=== PATIENT | female | born 1955 | race Caucasian/White ===

== ENCOUNTER 2021-02-16 08:00 | Outpatient (CLI) | payer MEDICARE, BC ==
[2021-02-16 15:12] LABS: BILIRUBIN,URINE NEGATIVE (NEGATIVE); GLUCOSE, URINE (UA) NEGATIVE (NEGATIVE); KETONES,URINE (UA) NEGATIVE (NEGATIVE); LEUKOCYTE ESTERASE, URINE NEGATIVE (NEGATIVE); NITRITE,URINE NEGATIVE (NEGATIVE); OCCULT BLOOD,URINE MODERATE (NEGATIVE); PROTEIN,URINE NEGATIVE (NEGATIVE); UROBILINOGEN,URINE 0.2 (NORMAL) E.U./dL (NORMAL)
[2021-02-16 16:45] LABS: BACTERIA,URINE None Seen /HPF (None Seen); CLARITY,URINE CLEAR (CLEAR); SQUAMOUS EPITHELIAL CELL,UR FEW Squamous (<= Few); WBC,URINE 0-3 /HPF (0-5)
== END 2021-02-16 23:59 | disposition home or self-care (01) ==
LOC: LAB.S 08:00
PROVIDERS: ATTEND Emergency Medicine
DX: R30.0 Dysuria (principal)
CPT/HCPCS: 81001; 87086

== ENCOUNTER 2021-09-14 12:49 | Outpatient (CLI) | payer MEDICARE, BC | END 2021-09-14 12:50 | disposition critical access hospital (66) | LOC: EMS 12:49 | DX: M79.621 Pain in right upper arm (principal); W01.0XXA Fall on same level from slipping, tripping and stumbling without subsequent striking against object, initial encounter; Y92.009 Unspecified place in unspecified non-institutional (private) residence as the place of occurrence of the external cause | CPT/HCPCS: A0425; A0427 ==

== ENCOUNTER 2021-09-14 13:30 | Emergency (ER) | payer MEDICARE, BC ==
[2021-09-14] MEDS ORDERED: HYDROmorphone 1 MG/ML CARPUJECT IVP STA (13:36)
--- NOTE | 2021-09-14 13:40 | ED Physician Documentation ---
History of Present Illness - Stated complaint Stated Complaint: GLF/R UPPER ARM INJ - Chief complaint Chief Complaint: Trauma Ext - History obtained from History obtained from: Patient, EMS - History of Present Illness Timing: Today Pain level max: 10 Pain level now: 10 - Additonal information Additional information: Patient is a 66-year-old female who presents to the emergency department after a ground-level fall complaining of right upper extremity pain. She states that she did not strike her head. No loss of consciousness. No neck or back pain. Worse with movement, better with rest. EMS gave 150 mcg of fentanyl en route. She states that most of the pain is in the upper humerus. She states that she did have numbness in her hand and arm, but this is improving now. She is right- handed. No other injuries Review of Systems Ten Systems: 10 systems reviewed and negative Constitutional: denies: Fever, Chills Nose: denies: Rhinorrhea / runny nose, Congestion Respiratory: denies: Cough GI: denies: Nausea, Vomiting, Diarrhea Skin: denies: Rash Musculoskeletal: denies: Neck pain, Back pain Neurologic: denies: Focal weakness, Numbness, Headache, Head injury, LOC PD PAST MEDICAL HISTORY - Past Medical History Past Medical History: Yes Psych: Depression, Anxiety Other Past Medical History: TBI - Present Medications Home Medications: Ambulatory Orders Medication Instructions Recorded Confirmed Oxycodone HCl/Acetaminophen 1 - 2 each PO Q6H PRN #14 tablet 09/14/21 [Percocet 5-325 mg Tablet] - Allergies Allergies/Adverse Reactions: Allergies Allergy/AdvReac Type Severity Reaction Status Date / Time Sulfa (Sulfonamide Allergy Anaphylaxis Verified 09/14/21 13:44 Antibiotics) - Living Situation Living Situation: reports: With family Living Arrangement: reports: At home - Social History Does the pt smoke?: No Does the pt have substance abuse?: No PD ED PE NORMAL - Vitals Vital signs reviewed: Yes - General General: Alert and oriented X 3, No acute distress, Well developed/nourished - HEENT HEENT: Atraumatic, PERRL, EOMI, Ears normal, Moist mucous membranes - Neck Neck: Supple, no meningeal sign, No bony TTP, C-Spine cleared by NEXUS criteria - Cardiac Cardiac: RRR - Respiratory Respiratory: No respiratory distress, Clear bilaterally - Abdomen Abdomen: Soft, Non tender, Non distended - Back Back: No spinal TTP - Derm Derm: Warm and dry - Extremities Extremities: Other (Deformity to the right shoulder. Neurovascularly intact. Axillary nerve intact. Nontender over the clavicle, distal humerus, forearm or wrist. 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, No motor deficit, No sensory d eficit, Normal speech Eye Opening: Spontaneous Motor: Obeys Commands Verbal: Oriented GCS Score: 15 - Psych Psych: Normal mood, Normal affect Results - Vitals Vitals: Vital Signs - 24 hr 09/14/21 09/14/21 09/14/21 13:35 13:59 14:18 Temperature 36.2 C L Heart Rate 62 63 64 Respiratory 18 18 18 Rate Blood Pressure 149/96 H 149/96 H 162/95 H O2 Saturation 99 95 100 09/14/21 09/14/21 09/14/21 14:21 14:23 14:30 Temperature Heart Rate 59 L 58 L 54 L Respiratory 10 L 10 L 16 Rate Blood Pressure 140/93 H 138/88 H 148/92 H O2 Saturation 90 L 09/14/21 09/14/21 09/14/21 14:32 14:36 14:43 Temperature Heart Rate 60 60 66 Respiratory 16 16 18 Rate Blood Pressure 140/64 H 148/92 H 148/92 H O2 Saturation 99 100 100 09/14/21 09/14/21 09/14/21 14:45 15:34 15:47 Temperature Heart Rate 67 53 L 76 Respiratory 16 18 18 Rate Blood Pressure 146/89 H 150/76 H 136/89 H O2 Saturation 100 100 100 09/14/21 15:54 Temperature Heart Rate 75 Respiratory 20 Rate Blood Pressure O2 Saturation Oxygen O2 Source Room air Oxygen Flow Rate 100 - Rads (name of study) Right shoulder x-ray Radiology: Final report received, EMP read contemporaneously, See rad report (Anterior right shoulder dislocation with Hill-Sachs fracture) Right shoulder x-ray postreduction Radiology: Final report received, EMP read contemporaneously, See rad report (Status post reduction of right shoulder anterior dislocation. 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 Resolved with oxygen) Sedation recovery: Recovered uneventfully, Slow recovery Time in sedation (Minutes): 35 PD MEDICAL DECISION MAKING - ED course Complexity details: reviewed results, re-evaluated patient, considered differential, d/w patient ED course: 66-year-old female status post ground-level fall at home. She initially said she did not strike her head, called and said that she has a traumatic brain injury and she did in fact strike her head when she fell. Therefore a head CT was performed. This is negative. She does have a right shoulder dislocation with Hill-Sachs fracture. This was reduced. Tolerated well. On the initial sedation, the shoulder did not reduce fully, therefore another 50 mg of propofol was given successfully reduced. This was all on the same sedation encounter. We will prescribe pain medication for home and have her follow-up with orthopedics. Patient counseled regarding signs and symptoms for which I believe and urgent re-evaluation would be necessary. Patient with good understanding of and agreement to plan and is comfortable going home at this time This document was made in part using voice recognition software. While efforts are made to proofread this document, sound alike and grammatical errors may occur. IMPRESSION: No significant intracranial abnormality is seen. No intracranial hemorrhage is seen. 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 Remote appearing outgrowth can be seen along the posterior inferior aspect of the left mastoids. 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 Departure - Departure Disposition: 01 Home, Self Care Clinical Impression: Shoulder dislocation Qualifiers: Encounter type: initial encounter Laterality: right Qualified Code(s): S43.004A - Unspecified dislocation of right shoulder joint, initial encounter Head injury Qualifiers: Encounter type: initial encounter Qualified Code(s): S09.90XA - Unspecified injury of head, initial encounter Hill-Sachs fracture Qualifiers: Encounter type: initial encounter Fracture type: closed Laterality: right Qualified Code(s): S42.291A - Other displaced fracture of upper end of right humerus, initial encounter for closed fracture Condition: Good Instructions: ED Dislocation Shoulder Redu Follow-Up: GARRETT RAPP ARNP [Primary Care Provider] - [facility] [Provider Group] - Within 1 week Prescriptions: Oxycodone HCl/Acetaminophen [Percocet 5-325 mg Tablet] 1 - 2 each PO Q6H PRN #14 tablet PRN Reason: pain Comments: Follow up with orthopedics for further care. Return if you worsen. Stay in the sling until released by orthopedics. Please call orthopedics for an appointment. Your prescriptions were sent to [facility] in [place]. I am prescribing a short course of narcotic pain medication for you. These are potentially dangerous and addictive medications that should be used carefully. These medications may constipate you. Take an [id number]-[id number] stool softener (docusate) twice daily with plenty of water while taking these medications. If you go 24 hours without a bowel movement, take [id number] miralax, per package instructions. Do not drink or drive while taking these medications. If you received narcotic or sedating medications while in the emergency department, do not drive for 24 hours. Store this medication in a safe, secure place and out of reach of children. It is a violation of federal law to give or sell this medication to another person or to use in a manner other than prescribed. The ED will not refill narcotic prescriptions, including prescriptions lost or stolen. To dispose of unwanted medications: 1. [facility] [address] in [place] has a medication drop box. They accept prescription medications (in pill form) Saturday through Saturday 9:00 a.m. to 5:00 p.m. 2. [facility] accepts prescription medications (in pill form only) for disposal year round. Call for more information. 3. Contact the [facility] for the next [facility] sponsored prescription drug collection event. , [phone], or [phone]; Discharge Date/Time: 09/14/21 16:00
[2021-09-14] MEDS ORDERED: SODIUM CHLORIDE 0.9% 1,000 ML IV STA (14:11)
[2021-09-14] MEDS ORDERED: PROPOFOL 200 MG/20 ML VIAL IVP STA (14:11)
--- NOTE | 2021-09-14 14:16 | XRAY Report ---
PROCEDURE: Humerus RT INDICATIONS: fall, humerus pain TECHNIQUE: 2 views of the humerus were acquired. COMPARISON: None FINDINGS: Bones: Anterior right shoulder dislocation noted. There is displaced Hill-Sachs fracture involving th e right humeral head. Soft tissues: No suspicious soft tissue calcifications. IMPRESSION: Anterior right shoulder dislocation with Hill-Sachs fracture. Reviewed by: Gaby Mancera MD, PhD on 09/14/2021 2:14 PM PDT Approved by: Gaby Mancera MD, PhD on 09/14/2021 2:14 PM PDT Station ID: [id number]
--- NOTE | 2021-09-14 14:47 | XRAY Report ---
PROCEDURE: Shoulder 2 View RT INDICATIONS: post reduction TECHNIQUE: 2 views of the shoulder were acquired. COMPARISON: 09/14/2021 at 1320 hours.. FINDINGS: Bones: Patient status post closed reduction of anterior right shoulder dislocation. There is normal a ssociation of the right humeral head and glenoid process following closed reduction. Visualized ribs appear intact. Soft tissues: No suspicious soft tissue calcifications. IMPRESSION: Status post reduction of right shoulder anterior dislocation. Reviewed by: Gaby Mancera MD, PhD on 09/14/2021 2:45 PM PDT Approved by: Gaby Mancera MD, PhD on 09/14/2021 2:45 PM PDT Station ID: [id number]
--- NOTE | 2021-09-14 15:29 | CT Report ---
PROCEDURE: HEAD WO INDICATIONS: fall, head injury TECHNIQUE: Noncontrast 4.5 mm thick angled axial sections acquired from the foramen magnum to the vertex. For r adiation dose reduction, the following was used: automated exposure control, adjustment of mA and/or kV according to patient size. COMPARISON: None. FINDINGS: Image quality: Excellent. CSF spaces: Basal cisterns are patent. No extra-axial fluid collections. Ventricles are normal in size and shape. Brain: Focal volume loss and encephalomalacia can be seen involving the anterior inferior right fron dez lobe. No midline shift. No intracranial masses or hemorrhage. Prasad-white matter interface is no rmal. Age-appropriate brain parenchymal volume loss and chronic small vessel ischemic change can be seen. Skull and face: Calvarium and visualized facial bones are intact, without suspicious lesions. There is a benign-appearing outgrowth seen along the posterior inferior aspect of the left mastoid air ophelia ls, as on series 7 image 6. There is a likely osteoma seen along the inner table of the left posterio r calvarial vault superiorly, as on series 5 image 17. Sinuses: Visualized sinuses and mastoids are clear. IMPRESSION: No significant intracranial abnormality is seen. No intracranial hemorrhage is seen. 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 Remote appearing outgrowth can be seen along the posterior inferior aspect of the left mastoids. 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 Reviewed by: Tremaine Sharma MD on 09/14/2021 2:28 PM DAMION Approved by: Tremaine Sharma MD on 09/14/2021 2:28 PM AKMARITO Station ID: [id number]
[2021-09-14 15:48] VITALS: BP 136/89
== END 2021-09-14 16:00 | disposition home or self-care (01) ==
LOC: EDUNIT# → ED 13:30
DX: S42.201A Unspecified fracture of upper end of right humerus, initial encounter for closed fracture (principal); W18.30XA Fall on same level, unspecified, initial encounter
CPT/HCPCS: 23655; 70450; 73030; 73060; 96374; 99152; 99153; 99284; 99285; J1170; 94770

== ENCOUNTER 2022-11-07 08:00 | Outpatient (CLI) | payer MEDICARE, BC | END 2022-11-07 23:59 | disposition home or self-care (01) | LOC: LAB.S 08:00 | PROVIDERS: ATTEND Physician Assistant | DX: R30.0 Dysuria (principal) | CPT/HCPCS: 87086; 87181 ==

== ENCOUNTER 2023-06-14 07:59 | Outpatient (CLI) | payer MEDICARE, BC ==
[2023-06-14 15:27] LABS: BASOPHILS # (AUTO) 0.1 10^3/uL (0.0-0.1); BASOPHILS % (AUTO) 1.2 %; EOSINOPHILS # (AUTO) 0.3 10^3/uL (0.0-0.7); HCT - HEMATOCRIT 40.3 % (37.0-47.0); HGB - HEMOGLOBIN 13.2 g/dL (12.0-16.0); LYMPHOCYTES # (AUTO) 1.7 10^3/uL (1.5-3.5); LYMPHOCYTES % (AUTO) 35.8 %; MEAN CORPUSCULAR HEMOGLOBIN 31.3 pg (27.0-31.0); MEAN CORPUSCULAR HGB CONC 32.8 g/dL (32.0-36.0); MEAN CORPUSCULAR VOLUME 95.5 fL (81.0-99.0); MEAN PLATELET VOLUME 10.3 fL (7.9-10.8); MONOCYTES # (AUTO) 0.4 10^3/uL (0.0-1.0); MONOCYTES % (AUTO) 7.7 %; NEUTROPHILS # (AUTO) 2.4 10^3/uL (1.5-6.6); NEUTROPHILS % (AUTO) 49.1 %; PLT - PLATELET COUNT 317 10^3/uL (130-450); RED BLOOD COUNT 4.22 10^6/uL (4.20-5.40); RED CELL DISTRIBUTION WIDTH 12.8 % (12.0-15.0); WHITE BLOOD COUNT 4.8 x10^3/uL (4.8-10.8)
[2023-06-14 16:10] LABS: ALBUMIN 4.2 g/dL (3.2-5.5); ALBUMIN/GLOBULIN RATIO 1.6 (1.0-2.2); BILIRUBIN,TOTAL 0.6 mg/dL (0.2-1.0); CALCIUM 9.2 mg/dL (8.5-10.3); CREATININE 0.8 mg/dL (0.6-1.3); POTASSIUM 4.5 mmol/L (3.5-4.5); TOTAL PROTEIN 6.8 g/dL (6.4-8.9)
[2023-06-14 16:45] LABS: THYROID STIMULATING HORMONE 1.07 uIU/mL (0.34-5.60)
== END 2023-06-14 08:00 | disposition home or self-care (01) ==
LOC: LAB.S 07:59
PROVIDERS: ATTEND Registered Nurse
DX: R00.0 Tachycardia, unspecified (principal)
CPT/HCPCS: 36415; 80053; 84443; 85025